=== PATIENT | male | born 1955 | race Caucasian/White ===

== ENCOUNTER 2021-10-31 12:38 | Emergency (ER) | payer MEDICARE, SELFPAY ==
[2021-10-31 12:57] VITALS: BP 175/84; PULSE 81; RESP 18; TEMP 36.9; O2SAT 100; BMI 26.6
--- NOTE | 2021-10-31 13:07 | XR_ITS ---
WS: [id number] LEFT RIBS, MULTIPLE VIEWS WITH PA CHEST HISTORY: fall; posterior rib pain COMPARISON: None available. Lungs and mediastinum: Lungs are clear and well aerated. No pneumothorax. No pleural effusion. Ribs: Nondisplaced posterior LEFT fifth rib fracture. Age indeterminate. No additional rib fractures are identified. Prior rotator cuff repair LEFT shoulder. Resection distal LEFT clavicle. XR/XR ribs LT mn 3V w [id number] IMPRESSION: 1. Age-indeterminate LEFT posterior fifth rib fracture. 2. No pneumothorax.
--- NOTE | 2021-10-31 13:08 | ED_ITS ---
HPI - Fall General: Chief Complaint: Fall Stated Complaint: Upper side pain due to fall Time Seen by Provider: 10/31/21 13:00 Source: patient and family () Mode of arrival: ambulatory Limitations: no limitations History of Present Illness: Patient is a nice 66-year-old male who presents to ED today along with his for concerns of left posterior rib pain that began approximately 3 days ago after a fall. Patient states he had gotten up in the middle of the night and was getting back in bed when he missed the bed (states he was staying at a friend's house so he was unfamiliar with the surr ounding/environment). He states when he fell he struck the left posterior aspect of his rib/chest wall on a side table. Patient states he initially thought he was improving on his own however has now began to experience intermittent muscle spasming that he states is significantly uncomfortable. Patient states he was seen at urgent care prior to his arrival to the ED but states they were told they did not have the capability for rib films. Patient does not complain of any chest pain, shortness of breath, difficulty breathing he has no other complaints or injuries related to the fall. MD complaint: fall Onset (ago): day(s) Fall from: standing Fall witnessed: no Place fall occurred: other (friend's house) Loss of consciousness: None Prolonged down time: no Symptoms prior to fall: none Context: tripped/slipped Location of injury: chest Associated symptoms-after fall: Reports no associated symptoms and chest pain (L posterior rib pain); Denies abdominal pain, hematuria, lightheadedness or neck pain Review of Systems Const: Denies: fever(s), chills, body aches, fatigue or malaise Card: Reports: chest pain (L posterior rib pain); Denies: palpitations, irregular heart rhythm, edema, swelling of feet/ankles, lightheadedness, syncope, pre-syncope, dyspnea on exertion or orthopnea Resp: Reports: pain on inspiration; Denies: dyspnea, productive cough, wheezing, stridor, hemoptysis or chest congestion GI: Denies: abdominal pain, nausea, vomiting or change in bowel habits : Denies: flank pain, dysuria or hematuria Musc: Reports: back pain (L posterior rib pain; no midline pain); Denies: neck pain, extremity pain or joint pain Physical Exam Const: COMMON NORMALS: average body habitus, patient oriented x3, no limitations, healthy appearing, alert and well nourished GENERAL APPEARANCE: cooperative and in distress (intermittently uncomfortable secondary to spasms) ORIENTATION/CONSCIOUSNESS: Yes awake, Yes oriented to person, Yes oriented to place and Yes oriented to time Chest: COMMONS NORMALS: normal inspection of the chest OTHER: TTP L lower posterior rib pain reproducible with palpation; no crepitus noted; lung sounds normal Resp: COMMON NORMALS: normal respiratory effort and clear to auscultation bilaterally AUSCULTATION: clear to auscultation bilaterally Cardio: COMMON NORMALS: regular rate and regular rhythm RATE: regular rate RHYTHM: regular rhythm Back/Pelvis: COMMON NORMALS: thoracic and lumbar spine normal to inspection, no thoracic nor lumbar tenderness and thoraco-lumbar ROM normal Neuro: COMMON NORMALS: patient oriented x3, moves all extremities, no focal motor deficits, no sensory deficits noted and gait normal SENSORIUM/ORIENTATION: Yes alert, Yes oriented to person, Yes oriented to place and Yes oriented to time Skin: TRAUMA: no lacerations or abrasions Course Vital Signs: Vital signs: Vital Signs Temperature 98.4 F 10/31/21 12:57 Pulse Rate 81 10/31/21 12:57 Respiratory Rate 18 10/31/21 13:20 Blood Pressure 175/84 10/31/21 12:57 Pulse Oximetry 100 10/31/21 12:57 MDM - Fall Medical Decision Making XR personal interpretation was negative. I did visualize old appearing fracture. XR over-read mentioned age indeterminate fracture. Ultimately treatment is the same. Patient will be treated with pain meds, NDAIDS, muscle relaxers as he was complaining of spasms. Recommend follow up with his PCP in a week or so. Return to ED precautions given. Lab Data Radiology Impressions Ribs X-Ray 10/31/21 13:07 IMPRESSION: 1. Age-indeterminate LEFT posterior fifth rib fracture. 2. No pneumothorax. Discharge Plan Discharge Patient Disposition: Home Clinical Impression: Contusion of rib on left side Qualifiers: Encounter type: initial encounter Qualified Code(s): S20.212A - Contusion of left front wall of thorax, initial encounter Condition: Stable Prescriptions: New methocarbamol 500 mg tablet 1,000 mg PO Q8H Qty: 30 0RF ibuprofen 800 mg tablet 800 mg PO Q8H PRN (Reason: pain) Qty: 20 0RF hydrocodone-acetaminophen 5-325 mg tablet 1 tab PO Q6H PRN (Reason: pain) Qty: 14 0RF No Action losartan 100 mg tablet 100 mg PO DAILY 0RF Discharge Orders: Discharge ED (Routine); Ordered 10/31/21 Ordered By: Inga Bautista Patient Instructions: Rib Contusion (ED) Coding Level of Care Code ED Component Engineer for Joselyn Fwd Exam Detailed
[2021-10-31] MEDS: ketorolac 30 mg/mL INJ IM (13:19)
[2021-10-31 13:20] VITALS: RESP 18
[2021-10-31] MEDS: morphine 4 mg/mL SDV 1 mL IM (13:20)
[2021-10-31] MEDS: orphenadrine 30 mg/mL Inj 2 mL 60 MG IM (13:20)
== END 2021-10-31 14:51 | disposition home or self-care (01) ==
PROVIDERS: Emergency Provider Physician Assistant
DX: S20.212A Contusion of left front wall of thorax, initial encounter (principal); W06.XXXA Fall from bed, initial encounter
CPT/HCPCS: 71101; 96372; 99284; J1885; J2270; J2360